=== PATIENT | female | born 1985 | race Caucasian/White ===

== ENCOUNTER 2021-01-27 15:36 | Outpatient (CLI) | payer BC ==
[2021-01-27] MEDS ORDERED: GADOBUTROL 7.5 MMOL/7.5 ML VIAL ONE (16:09)
[2021-01-27] MEDS ORDERED: GADOBUTROL 7.5 MMOL/7.5 ML VIAL IVP ONE (16:37)
--- NOTE | 2021-01-27 17:57 | MRI Report ---
PROCEDURE: IACS W/WO INDICATIONS: SENSORINEURAL HEARING LOSS CONTRAST: IV CONTRAST: Gadavist ml: 7.5 TECHNIQUE: Noncontrast sagittal T1 spin echo, axial FLAIR, axial gradient echo, axial diffusion and ADC through the brain. Axial thin-slice 3D CISS, coronal balanced GE, axial T1 spin echo with fat saturation thr ough the internal auditory canals. After the administration of contrast, thin slice axial and amos l T1 spin echo with fat saturation through the internal auditory canals, and axial T1 spin echo with fat saturation through the brain. COMPARISON: None. FINDINGS: Image quality: Diagnostic. Cerebellopontine angles: No cerebellopontine angle masses. Inner ear structures appear normally for med. No suspicious enhancement in the internal auditory canal or along the course of the 7th cranial nerve. CSF spaces: Ventricles are normal in size and shape. No extra-axial fluid collections. Basal ciste rns are patent. Brain: No intracranial hemorrhage, mass, or mass effect. Dale-white matter interface is preserved. No abnormal intracranial enhancement. Diffusion weighted images demonstrate no acute infarcts. Brain stem appears normal. Normal intravascular flow voids are present. Skull and face: Calvarial marrow signal is normal. Orbits appear normal. Sinuses: Sinuses and mastoids are clear. IMPRESSION: 1. No discrete mass or abnormal enhancement demonstrated in the internal auditory canals. Reviewed by: King Martínez MD on 01/27/2021 4:55 PM [facility] Approved by: King Martínez MD on 01/27/2021 4:55 PM [facility] Station ID: [id number]
== END 2021-01-27 15:37 | disposition home or self-care (01) ==
LOC: DI 15:36
PROVIDERS: ATTEND Otolaryngology Facial Plastic Surgery
DX: H90.42 Sensorineural hearing loss, unilateral, left ear, with unrestricted hearing on the contralateral side (principal)
CPT/HCPCS: 70543; A9585